=== PATIENT | male | born 1955 | race Two or more races ===

== ENCOUNTER 2024-01-09 16:02 | Emergency (ER) | payer MEDICARE, MEDICAID, SELFPAY ==
[2024-01-09 16:02] VITALS: BMI 37.1
[2024-01-09 16:05] VITALS: BP 160/88; PULSE 76; RESP 19; TEMP 36.9; O2SAT 96
--- NOTE | 2024-01-09 16:18 | XR_ITS ---
Examination: CT brain head without contrast. 2-D sagittal coronal reconstructions Date and time of exam:January 09, 2024 1629 hrs. Indications: Onset dizziness and vertigo beginning this morning 8 hours ago CTDI: vol (mGy):51.6 DLP: (mGycm):997 Technique: Multiple CT axial sections of the brain have been obtained, 5 mm slice thickness. Contrast has not been administered. 2-D sagittal, coronal reconstructions have been obtained Low dose protocols were performed. One or more of the following dose reduction techniques were used; automated exposure control, adjustment of the mA and/or KV according to patient size, use of iterative reconstruction technique. Findings: No significant ventricular enlargement. Intra-axial or extra-axial hemorrhage density is not seen. No mass effect or midline shift Basal cisterns are not remarkable. Fourth ventricle is midline. Cranial vault intact. Impression: Negative for acute hemorrhage, mass effect or midline shift Acute left sphenoid sinusitis
--- NOTE | 2024-01-09 16:19 | PD.EDRME ---
Rapid Medical Screening Exam RME Arrival date/time: 01/09/24 16:02 68-year-old male presents to the emergency department complaints of dizziness Chief Complaint: Dizziness Vital signs: Vital Signs Temperature 98.5 F 01/09/24 16:05 Pulse Rate 76 01/09/24 16:05 Respiratory Rate 19 01/09/24 16:05 Blood Pressure 160/88 H 01/09/24 16:05 Pulse Oximetry (%) 96 01/09/24 16:05 Oxygen Delivery Method Room Air 01/09/24 16:05
[2024-01-09 16:51] LABS: Basophils % (Auto) 1 % (0-2.5); Eosinophils # (Auto) 0.2 Thou/mm3 (0.0-0.5); Eosinophils % (Auto) 3 % (0-10); Hematocrit 36.7 % (41.0-53.0); Hemoglobin 13.1 g/dL (13.5-16.0); Immature Granulocytes % (Auto) 0 % (0-0); Immature Granulocytes Auto 0.02 Thou/mm3 (0.00-0.00); Lymphocytes # (Auto) 0.8 Thou/mm3 (1.0-4.8); Lymphocytes % (Auto) 15 % (10-50); Mean Corpuscular HGB Conc 35.7 g/dl (31.0-37.0); Mean Corpuscular Hemoglobin 29.4 pg (25.0-35.0); Mean Corpuscular Volume 83 fL (80-100); Monocytes # (Auto) 0.5 Thou/mm3 (0.0-0.8); Monocytes % (Auto) 10 % (0-12); Neutrophils % (Auto) 72 % (37-80); Nucleated Red Blood Cell % 0 /100 WBC (0); Platelet Count 114 Thou/mm3 (140-440); RDW Standard Deviation 42.2 fL (35.1-43.9); Red Blood Count 4.45 Miln/mm3 (4.50-5.90); White Blood Count 5.6 Thou/mm3 (3.8-10.6)
[2024-01-09 16:54] LABS: B-Type Natriuretic Peptide 24 pg/mL (0-100)
[2024-01-09 16:56] LABS: Alanine Aminotransferase 31 U/L (10-49); Albumin, Serum 4.5 gm/dL (3.4-4.8); Albumin/Globulin Ratio 1.7 (1.2-2.2); Alkaline Phosphatase 100 U/L (46-116); Anion Gap 7 (7-16); Aspartate Amino Transferase 26 U/L (0-34); BUN/Creatinine Ratio 17 Ratio (12-20); Bilirubin,Total 2.2 mg/dL (0.3-1.2); Blood Urea Nitrogen 15 mg/dL (9-23); Calcium 9.4 mg/dL (8.3-10.6); Calcium (Corrected) 9.4 mg/dL (8.5-10.1); Carbon Dioxide 24.5 mMol/L (20.0-31.0); Chloride 106 mMol/L (98-107); Creatinine (Component) 0.9 mg/dL (0.6-1.3); Estimated Creatinine Clearance 90.1 mL/min (>60); Globulin 2.7 gm/dL (2.3-3.5); Glucose 130 mg/dL (74-106); Magnesium 1.8 mg/dL (1.6-2.6); Osmolality,Calculated 276 (275-295); Potassium 3.5 mMol/L (3.4-5.1); Sodium 137 mMol/L (136-145); Total Protein 7.2 gm/dL (5.7-8.2); Troponin I < 0.002 ng/mL (0.0-0.045); eGFR > 60 See Note
[2024-01-09 17:26] LABS: Collection Type, Urine Clean Catch
[2024-01-09 17:35] LABS: Partial Thromboplastin Time 25.1 Seconds (22.0-36.0); Prothrombin Time 11.4 Seconds (9.0-12.2)
[2024-01-09 17:37] LABS: Bilirubin,Urine Negative (Negative); Blood,Urine Negative (Negative); Clarity,Urine Clear (Clear/Hazy); Color,Urine Yellow (Lt Yel-Yel); Glucose, Urine Negative (Negative); Ketones,Urine Negative (Negative); Leukocyte Esterase,Urine Negative (Negative); Nitrite,Urine Negative (Negative); Protein,Urine Negative (Neg - Trace); RBC,Urine 1 /hpf (0-3); Squamous Epithelial Cell,Urine 1 /hpf (0-5); WBC,Urine 1 /hpf (0-5)
[2024-01-09 17:44] LABS: Amphetamine/Methamp Scrn,U Negative (Negative); Barbiturate Screen,Urine Negative (Negative); Benzodiazepines Screen,Urine Negative (Negative); Benzoylecgonine Screen, Ur Negative (Negative); Fentanyl Screen,Urine Negative (Negative); Opiate Screen,Urine Negative (Negative); THC Screen,Urine Negative (Negative)
[2024-01-09 18:10] VITALS: BP 161/96; PULSE 67; RESP 17; TEMP 36.8; O2SAT 98
[2024-01-09 18:41] VITALS: BP 174/91; PULSE 79; RESP 18; TEMP 36.9; O2SAT 97
--- NOTE | 2024-01-09 18:48 | EDNOTE_ITS ---
ED Dizzyness RME/HPI General Chief Complaint: Dizziness Stated Complaint: DIZZY SINCE THIS AM Time Seen by Provider: 01/09/24 18:33 Source: patient Arrival date/time: 01/09/24 16:02 68-year-old male presents emergency department complaining of dizziness when changing positions since this morning. Patient denies any fever, chills, cough, shortness of breath, or any other associated symptoms. Mode of arrival: ambulatory Limitations: no limitations RME / HPI RME / HPI Narrative: 01/09/24 16:02 68-year-old male presents to the emergency department complaints of dizziness Related Data Home Medications ?Medication ?Instructions ?Recorded ?Confirmed amlodipine 2.5 mg tablet 2.5 mg PO DAILY 10/10/17 05/08/19 lisinopril 40 mg tablet 40 mg PO QDAY 10/10/17 05/08/19 Previous Rx's ?Medication ?Instructions ?Recorded cephalexin 500 mg capsule (Keflex) 500 mg PO BID #14 caps 11/07/19 spironolactone 25 mg tablet 25 mg PO QDAY #5 tabs 11/07/19 amoxicillin 875 mg-potassium 1 tab PO BID 7 days #14 tabs 01/09/24 clavulanate 125 mg tablet ibuprofen 600 mg tablet 600 mg PO Q8H PRN pain #20 tabs 01/09/24 Allergies Allergy/AdvReac Type Severity Reaction Status Date / Time No Known Allergies Allergy Verified 01/09/24 16:04 Review of Systems Review of Systems Systems Reviewed: All systems reviewed, normal except as documented Constitutional Constitutional: Reports system reviewed and no additional complaints, except as documented, Denies body ache(s), Denies chills and Denies fever(s) Eyes Eyes: Reports system reviewed and no additional complaints, except as documented and Denies change in vision ENT Ears, Nose, Mouth, and Throat: Reports system reviewed and no additional complaints, except as documented, Denies disequilibrium, Denies dizziness, Denies sore throat and Reports vertigo Cardiovascular Cardiovascular: Reports system reviewed and no additional complaints, except as documented, Denies chest pain and Denies dyspnea Respiratory Respiratory: Reports system reviewed and no additional complaints, except as documented, Denies chest congestion, Denies cough and Denies dyspnea Gastrointestinal Gastrointestinal: Reports system reviewed and no additional complaints, except as documented, Denies abdominal pain, Denies nausea and Denies vomiting Musculoskeletal Musculoskeletal: Reports system reviewed and no additional complaints, except as documented, Denies abnormal gait and Denies arthralgias Integumentary/Breasts Skin/Breast: Reports system reviewed and no additional complaints, except as documented, Denies erythema, Denies rash and Denies wounds Neurologic Neurologic: Reports system reviewed and no additional complaints, except as documented, Denies abnormal gait, Denies disequilibrium, Denies dizziness and Reports vertigo Past Medical History Past Medical History CARDIAC: Positive Hypertension; Negative Congestive Heart Failure RESPIRATORY: Positive Asthma (USES MDI); Negative Chronic Obstructive Pulmonary Disease (COPD) GASTROINTESTINAL: Negative Gastrointestinal Disorders GENITOURINARY: Positive Genitourinary Disorders and Benign Prostatic Hyperplasia; Negative Renal Disease MUSCULOSKELETAL: Positive Fractures (RIGHT 4TH AND 5TH DIGIT, LEFT 4TH DIGIT); Negative Musculoskeletal Disorders ENDOCRINE: Negative Endocrine Disorders, Diabetes Mellitus Type 1 or Diabetes Mellitus Type 2 HEMATOLOGIC: Positive Anemia OTHER HISTORY: Positive Chicken Pox; Negative Anesthesia Reactions or Cancer Family History FAMILY HISTORY: Positive Family Gastrointestinal Problems (LIVER CIRRHOSIS) Social History SMOKING STATUS: Never smoker ED Exam General Limitations: Present no limitations General appearance: Present alert and in no apparent distress Head Head exam: Present atraumatic Eye Eye exam: Present normal appearance, PERRL and EOMI ENT ENT exam: Present normal exam, normal oropharynx and mucous membranes moist Neck Neck exam: Present normal inspection, full ROM and trachea midline Chest Chest inspection: Present normal inspection and symmetric chest wall rise Respiratory Respiratory exam: Present normal lung sounds bilaterally Cardiovascular Cardiovascular exam: Present regular rate, normal rhythm and normal heart sounds Abdominal Exam Abdominal exam: Present soft and normal bowel sounds Extremities Exam Extremities exam: Present normal inspection and full ROM Back Exam Back exam: Present normal inspection and full ROM Neurological Exam Neurological exam: Present alert, oriented X3 and CN II-XII intact Psychiatric Psychiatric exam: Present normal affect and normal mood Skin Skin exam: Present warm, dry, intact and normal color Course Quality Measures none Orders Category Date Time Status EKG (ED ONLY) *Do not use* NOW Care 01/09/24 16:[address] head/brain wo con Stat Exams 01/09/24 16:18 Completed EKG (ED Only) Stat Exams 01/09/24 16:18 Ordered B-Type Natriuretic Peptide Stat Lab 01/09/24 16:25 Completed CBC Stat Lab 01/09/24 16:25 Completed Comprehensive Metabolic Panel Stat Lab 01/09/24 16:25 Completed Drug Screen,Urine Stat Lab 01/09/24 17:00 Completed Magnesium Stat Lab 01/09/24 16:25 Completed Partial Thromboplastin Time Stat Lab 01/09/24 16:25 Completed Prothrombin Time with INR Stat Lab 01/09/24 16:25 Completed Troponin I Stat Lab 01/09/24 16:25 Completed Urinalysis Stat Lab 01/09/24 17:00 Completed Vital Signs Vital signs: Vital Signs Temperature 98.5 F 01/09/24 16:05 Pulse Rate 76 01/09/24 16:05 Respiratory Rate 19 01/09/24 16:05 Blood Pressure 160/88 H 01/09/24 16:05 Pulse Oximetry (%) 96 01/09/24 16:05 Oxygen Delivery Method Room Air 01/09/24 16:05 96% room air within normal limits Dizziness MDM Narrative MDM Narrative:: 68-year-old male presents emergency department complaining of dizziness when changing positions since this morning. Patient denies any fever, chills, cough, shortness of breath, or any other associated symptoms. Patient appears nontoxic and hemodynamically stable. Patient GCS 15 ambulating independently with steady gait. CBC was unremarkable for any leukocytosis. CMP was unremarkable other than elevated bilirubin. Patient's abdomen is soft and nontender. Troponin within normal limits. EKG sinus rhythm. CT scan of head was negative for any acute bleed but did show acute sphenoid sinusitis. Patient discharged home on oral antibiotics and instructed to have follow-up with primary care provider in 24 to 48 hours. Instructed to return to emergency department for any worsening symptoms or as needed. Patient data External records reviewed:: [facility] previous records Clinical information provided by:: patient Social determinants that could affect healthcare access:: none Patient has the following chronic illnesses:: See chart How is presenting disease/condition affected by chronic disease/condition?: uneffected by Evaluation data The following diagnostics were reviewed and interpreted by me:: lab results, radiology exam(s) and EKG tracing(s) Lab and/or radiology exams considered but not ordered:: Ordered Interpretation Summary: Interpreted by me Medications / Prescriptions Medications or Prescriptions considered but not ordered:: N/A Medication administrations:: N/A Consultations Consultation(s) initiated? (list below): No Diagnosis Dizziness Differential Diagnosis: benign paroxysmal positional vertigo and orthostatic hypotension Most likely diagnosis given after review of the tests above:: Sphenoid sinusitis Admission Indicated Admission indicated?: not indicated Admission Request Was there a request for admission?: No Disposition Plan Disposition Plan: Discharge Discharge Attestation Discharge Attestation: The patient and all family members were given an opportunity to ask questions and understood the discharge instructions. Discharge instructions specifically effects, indications for sooner follow up or return to the emergency department, and the expected course of current diagnosis. Patient condition: Stable Discharge Plan Plan Patient Disposition: HOME (Self Care) Disposition Comment: Stable Prescriptions/Referrals Prescriptions/Med Rec: New ibuprofen 600 mg tablet 600 mg PO Q8H PRN (Reason: pain) Qty: 20 0RF amoxicillin-pot clavulanate 875-125 mg tablet 1 tab PO BID 7 Days Qty: 14 0RF No Action amlodipine 2.5 mg Tablet 2.5 mg PO DAILY lisinopril 40 mg Tablet 40 mg PO QDAY spironolactone 25 mg tablet 25 mg PO QDAY Qty: 5 0RF cephalexin [Keflex] 500 mg capsule 500 mg PO BID Qty: 14 0RF Referrals: Serafin Childs MD [Primary Care Provider] - In 1 week Problem List Clinical Impression: Sinusitis Patient/Caregiver Discharge Instructions Education Materials: Causes of Sinusitis, ED Sinusitis (Antibiotic Treatment) Additional Instructions: Medication as prescribed. Take ibuprofen as needed for pain. Follow-up with primary care provider in 2 to 3 days. Return to emergency department for any worsening symptoms or as needed. Print Language: Faroese Stand Alone Forms: Mimi Award Info., Patient Portal Info Letter Attestation Attestation The patient was seen by the midlevel practitioner. I, the co-signing physician, was present during the entire ER visit. While I did not physically examine the patient, I was available for consultation as needed.
== END 2024-01-09 22:00 | disposition home or self-care (01) ==
PROVIDERS: Nurse Practitioner Primary Care; Emergency Provider Emergency Medicine; PCP Family Medicine
DX: J01.30 Acute sphenoidal sinusitis, unspecified (principal); I45.10 Unspecified right bundle-branch block
CPT/HCPCS: 36415; 70450; 80053; 80307; 81001; 83735; 83880; 84484; 85025; 85610; 85730; 93005; 99284

== ENCOUNTER 2024-07-11 16:24 | Emergency (ER) | payer MEDICARE, MEDICAID, SELFPAY ==
[2024-07-11 17:10] VITALS: BP 112/65; PULSE 103; RESP 20; TEMP 37.2; O2SAT 95; BMI 38.7
--- NOTE | 2024-07-11 17:23 | EDNOTE_ITS ---
<Statement entered by Mary Ellen Guzmán MD - 07/12/24 06:24> As co-signing physician, I was present and available for consult prn. I concur with the plan and care as documented by the midlevel provider. Upper Respiratory Inf. RME/HPI General Chief Complaint: Flu Like Symptoms Stated Complaint: Nausea vomiting and diarrhea, bilateral ear impact Time Seen by Provider: 07/11/24 17:22 Source: patient Arrival date/time: 07/11/24 16:24 Mode of arrival: ambulatory Limitations: no limitations RME / HPI RME / HPI Narrative: 69-year-old male presents to urgent care with complaint of vomiting as well as diarrhea that began approximately 10:00 earlier today. Denies ryan abdominal pain complains of a sore abdomen. Onset (ago): hour(s) Severity: moderate Severity scale (1-10): 5 Relieving factors: nothing Exacerbating factors: swallowing and other (Vomiting) Description of mucous: watery Able to tolerate fluids by mouth: Yes Context: sick contacts Related Data Home Medications ?Medication ?Instructions ?Recorded ?Confirmed amlodipine 2.5 mg tablet 2.5 mg PO DAILY 10/10/1712/17 lisinopril 40 mg tablet 40 mg PO QDAY 10/10/1705/07 Previous Rx's ?Medication ?Instructions ?Recorded cephalexin 500 mg capsule (Keflex) 500 mg PO BID #14 c aps 11/07/19 spironolactone 25 mg tablet 25 mg PO QDAY #5 tabs 11/17 ibuprofen 600 mg tablet 600 mg PO Q8H PRN pain #20 t abs 01/09/24 ondansetron HCl 4 mg tablet 4 mg PO Q8H PRN nausea and 07/11/24 vomiting #20 tabs Allergies Allergy/AdvReac Type Severity Reaction Status Date / Time No Known Allergies Allergy Verified 07/11/24 16:27 Review of Systems Constitutional Constitutional: Reports system reviewed and no additional complaints, except as documented Eyes Eyes: Reports system reviewed and no additional complaints, except as documented, Denies dry eyes, Denies exophthalmos and Reports floaters Cardiovascular Cardiovascular: Denies chest pain with activity and Denies claudication Past Medical History Past Medical History CARDIAC: Positive Hypertension; Negative Congestive Heart Failure RESPIRATORY: Positive Asthma (USES MDI); Negative Chronic Obstructive Pulmonary Disease (COPD) GASTROINTESTINAL: Negative Gastrointestinal Disorders GENITOURINARY: Positive Genitourinary Disorders and Benign Prostatic Hyperplasia; Negative Renal Disease MUSCULOSKELETAL: Positive Fractures (RIGHT 4TH AND 5TH DIGIT, LEFT 4TH DIGIT); Negative Musculoskeletal Disorders ENDOCRINE: Negative Endocrine Disorders, Diabetes Mellitus Type 1 or Diabetes Mellitus Type 2 HEMATOLOGIC: Positive Anemia OTHER HISTORY: Positive Chicken Pox; Negative Anesthesia Reactions or Cancer Family History FAMILY HISTORY: Positive Family Gastrointestinal Problems (LIVER CIRRHOSIS) Social History SMOKING STATUS: Never smoker ED Exam Narrative Physical exam: Abdomen is soft mildly tender without rebound tenderness and there is no apparent masses and there is no guarding present. General Limitations: Present no limitations General appearance: Present alert and in no apparent distress Head Head exam: Present atraumatic Eye Eye exam: Present normal appearance, PERRL and EOMI ENT ENT exam: Present normal exam, normal oropharynx and mucous membranes moist Neck Neck exam: Present normal inspection, full ROM and trachea midline Chest Chest inspection: Present normal inspection and symmetric chest wall rise Respiratory Respiratory exam: Present normal lung sounds bilaterally Cardiovascular Cardiovascular exam: Present regular rate, normal rhythm and normal heart sounds Abdominal Exam Abdominal exam: Present soft, distention (The abdomen is distended.) and tenderness Extremities Exam Extremities exam: Present normal inspection and full ROM Back Exam Back exam: Present normal inspection and full ROM Neurological Exam Neurological exam: Present alert, oriented X3 and CN II-XII intact Psychiatric Psychiatric exam: Present normal affect and normal mood Skin Skin exam: Present warm, dry, intact and normal color Course Course Course Narrative: Patient 4 mg of Zofran Quality Measures none Orders Category Date Time Status Ondansetron Odt [Zofran Odt] Med 07/11/24 17:22 Discontinued 4 mg PO X1 ONE The above orders are signed by dc Vital Signs Vital signs: Vital Signs Temperature 98.9 F 07/11/24 17:10 Pulse Rate 103 H 07/11/24 17:10 Respiratory Rate 20 07/11/24 17:10 Blood Pressure 112/65 07/11/24 17:10 Pulse Oximetry (%) 95 07/11/24 17:10 Oxygen Delivery Method Room Air 07/11/24 17:10 Pulse ox on room air 95% Upper Respiratory Infection MDM Narrative MDM Narrative:: Patient will have 4 mg of Zofran and I will send 4 mg of Zofran to the pharmacy of his choice. Patient will be discharged in no apparent distress Patient data External records reviewed:: Other (specify) Clinical information provided by:: none Social determinants that could affect healthcare access:: none Patient has the following chronic illnesses:: Hypertension How is presenting disease/condition affected by chronic disease/condition?: no chronic disease Evaluation data The following diagnostics were reviewed and interpreted by me:: other (specify) Lab and/or radiology exams considered but not ordered:: N/A Interpretation Summary: N/A Medications / Prescriptions Medications or Prescriptions considered but not ordered:: NA Medication administrations:: Medication Administration History Discontinued Medications Ondansetron HCl (Ondansetron Odt 4 Mg Tabrap) 4 mg PO X1 ONE; Protocol Stop: 07/11/24 17:23 This medication was ordered by me. Consultations Consultation(s) initiated? (list below): No Diagnosis Upper Respiratory Differential Diagnosis: other (Viral syndrome) Most likely diagnosis given after review of the tests above:: NA Admission Indicated Admission indicated?: not indicated Admission Request Was there a request for admission?: No Disposition Plan Disposition Plan: Discharge Discharge Attestation Discharge Attestation: The patient and all family members were given an opportunity to ask questions and understood the discharge instructions. Discharge instructions specifically effects, indications for sooner follow up or return to the emergency department, and the expected course of current diagnosis. Patient condition: Stable Discharge Plan Plan Patient Disposition: HOME (Self Care) Discharge Disposition comment: Patient discharged in no apparent distress Patient condition on transfer: Stable Prescriptions/Referrals Prescriptions/Med Rec: New ondansetron HCl 4 mg tablet 4 mg PO Q8H PRN (Reason: nausea and vomiting) Qty: 20 0RF No Action amlodipine 2.5 mg Tablet 2.5 mg PO DAILY lisinopril 40 mg Tablet 40 mg PO QDAY spironolactone 25 mg tablet 25 mg PO QDAY Qty: 5 0RF cephalexin [Keflex] 500 mg capsule 500 mg PO BID Qty: 14 0RF ibuprofen 600 mg tablet 600 mg PO Q8H PRN (Reason: pain) Qty: 20 0RF Problem List Clinical Impression: Viral infection Patient/Caregiver Discharge Instructions Discharge Activity: activity as tolerated Diet Instructions: Liquid diet Education Materials: ED Viral Syndrome (Adult) Print Language: Welsh PA/[employer] ENGINEER Supervising Physician PA/[employer] ENGINEER Supervising Physician: Arielle
[2024-07-11] MEDS: ONDANSETRON ODT 4 MG TABRAP PO (17:37)
[2024-07-11 19:14] VITALS: RESP 18
== END 2024-07-11 19:15 | disposition home or self-care (01) ==
PROVIDERS: Emergency Provider Emergency Medicine; PCP Family Medicine
DX: B34.9 Viral infection, unspecified (principal)
CPT/HCPCS: 99282; Q0162